=== PATIENT | female | born 1985 | race Hispanic/Latino ===

== ENCOUNTER 2019-07-05 07:02 | Inpatient (IN) | payer BC, OTHER ==
[2019-07-05 07:30] LABS: Absolute Lymphocytes (CBC) 2.9 K/uL (0.7-4.9); Basophils % 0.5 % (0-1.3); Hematocrit 36.3 % (36.0-45.0); Lymphocytes % 40.9 % (15.3-44.8); MPV 8.4 fL (7.6-11.3); RBC Red Blood Cell Count 4.18 M/uL (3.86-4.86)
[2019-07-05 07:50] LABS: ALT/SGPT 22 U/L (12-78); AST/SGOT 9 U/L (15-37); Albumin 3.7 g/dL (3.4-5.0); Alkaline Phosphatase 59 U/L (45-117); BUN Blood Urea Nitrogen 17 mg/dL (7-18); Bicarbonate 23 mmol/L (21-32); Bilirubin Direct < 0.1 mg/dL (0-0.2); Bilirubin Total 0.3 mg/dL (0.2-1.0); Glucose Level 126 mg/dL (74-106); Lipase 183 U/L (73-393); Potassium 3.8 mmol/L (3.5-5.1); Protein, Total 7.2 g/dL (6.4-8.2); Sodium Level 141 mmol/L (136-145)
[2019-07-05] MEDS ORDERED: MORPHINE 4 MG/ML SYR ONE (08:05)
--- NOTE | 2019-07-05 08:23 | RAD REPORT ---
EXAM DESCRIPTION: CTAbdomen Pelvis W Contrast - 07/05/2019 8:16 am CLINICAL HISTORY: Abdominal pain. ABD PAIN COMPARISON: Pelvis Complete dated 07/05/2019 TECHNIQUE: Biphasic CT imaging of the abdomen and pelvis was performed with 100 ml non-ionic IV cont rast. All CT scans are performed using dose optimization technique as appropriate and may include automated exposure control or mA/KV adjustment according to patient size. FINDINGS: The lung bases are clear. The liver, spleen, pancreas, adrenal glands and kidneys are within normal limits. No bowel obstruction, free air, free fluid or abscess. Small fat containing umbilical hernia. The irish endix is normal. No evidence of significant lymphadenopathy. No suspicious bony findings. IMPRESSION: No acute intra-abdominal or pelvic finding.
--- NOTE | 2019-07-05 08:34 | RAD REPORT ---
EXAM DESCRIPTION: US - Abdomen Exam Limited - 07/05/2019 8:27 am CLINICAL HISTORY: ABD PAIN COMPARISON: No comparisons FINDINGS: The gallbladder demonstrates multiple shadowing stones as well as sludge. No pericholecyst ic fluid or gallbladder wall thickening. The common bile duct is normal measuring 4 mm. The liver demonstrates no findings of intrahepatic biliary dilatation. IMPRESSION: Cholelithiasis and gallbladder sludge.
[2019-07-05 08:35] LABS: Urine Blood 3+ (NEG); Urine Glucose NEGATIVE (NEG); Urine Protein NEGATIVE (NEG); Urine pH 7.5 (5.0-7.0)
--- NOTE | 2019-07-05 08:37 | RAD REPORT ---
EXAM DESCRIPTION: US - Transvaginal Study Probe - 07/05/2019 8:21 am CLINICAL HISTORY: lower abd pain, LLQ pain, rule out ovarian torsion Pelvic pain. COMPARISON: TRANSVAGINAL STUDY PROBE dated 02/09/2011 FINDINGS: The uterus is normal in size, shape and echotexture. The uterus measures 8.4 x 6.2 x 5.4 c m. The endometrial stripe measures 8 mm, normal. Both ovaries are normal in size, shape and echotexture. The right ovary measures 3.1 x 1.2 x 1.1 cm. The left ovary measures 2.4 x 1.6 x 1.6 cm. No ovarian or parovarian lesions. No adnexal masses. Normal Doppler blood flow was demonstrated to the left ovary. Doppler blood flow to the right ovary c ould not be demonstrated due to position of the ovary. No significant pelvic ascites. IMPRESSION: No acute process identified.No evidence of left ovarian torsion.
[2019-07-05 08:48] LABS: Urine Bacteria 20-50 /HPF (<20); Urine Culture Reflex Order REFLEXED; Urine Mucus SLIGHT /HPF (NONE SEEN); Urine RBC >50 /HPF (NONE SEEN)
[2019-07-05] MEDS ORDERED: MEPERIDINE HCL 25 MG/0.5 ML ONE (08:53)
--- NOTE | 2019-07-05 09:31 | ER ---
Nurse's Notes [facility] Name: Katie Grace Age: 34 yrs Sex: Female : 1985 Arrival Date: 07/05/2019 Time: 07:06 Bed 6 Private MD: None, None Diagnosis: Cholelithiasis;Intractable abdominal pain Presentation: 07/05 07:11 Presenting complaint: Patient states: umbilical pain radiating to back that began today aa5 at 0300. Pt denies Nausea/vomiting/diarrhea. Pt states "my gallbladder doesn't work properly but this pain feels different". 07:11 Transition of care: patient was not received from another setting of care. Onset of aa5 symptoms was July 05, 2019. Risk Assessment: Do you want to hurt yourself or someone else? Patient reports no desire to harm self or others. Initial Sepsis Screen: Does the patient meet any 2 criteria? No. Patient's initial sepsis screen is negative. Does the patient have a suspected source of infection? No. Patient's initial sepsis screen is negative. Care prior to arrival: None. 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 - Social history:: Smoking status: Patient/guardian denies using tobacco. - Family history:: not pertinent. - Ebola Screening: : No symptoms or risks identified at this time. - Hospitalizations: : No recent hospitalization is reported. Screenin:28 Abuse screen: Denies threats or abuse. Nutritional screening: No deficits noted. tw2 Tuberculosis screening: No symptoms or risk factors identified. Fall Risk None identified. Assessment: 07:15 General: Appears uncomfortable, Behavior is calm, cooperative. Pain: Complains of pain aa5 in umbilical area Pain radiates to left low back, left mid back, right mid back and right low back Pain currently is 9 out of 10 on a pain scale. Quality of pain is described as "it just hurts" Pain began 0300 Is intermittent. Neuro: Level of Consciousness is awake, alert, obeys commands, Oriented to person, place, time, situation. Cardiovascular: Heart tones S1 S2 present Rhythm is regular. Respiratory: Airway is patent Respiratory effort is even, unlabored, Respiratory pattern is regular, symmetrical. GI: Abdomen is round non-distended, Bowel sounds present X 4 quads. Abd is soft and non tender X 4 quads. Abdomen is tender to palpation in umbilical area Patient currently denies diarrhea, nausea, vomiting. : Denies burning with urination, inability to void, urinary frequency, urgency. EENT: No signs and/or symptoms were reported regarding the EENT system. Derm: Skin is pink, warm \\T\\ dry. Musculoskeletal: Range of motion: intact in all extremities. 07:26 Reassessment: US at bedside . aa5 08:15 Reassessment: Pt back from CT . aa5 08:40 Reassessment: Patient is alert, oriented x 3, equal unlabored respirations, skin aa5 warm/dry/pink. Pt appears uncomfortable. Dr. Martínez notified of pt's pain. . 08:55 Reassessment: Patient is alert, oriented x 3, equal unlabored respirations, skin aa5 warm/dry/pink. 09:40 Reassessment: Patient is alert, oriented x 3, equal unlabored respirations, skin aa5 warm/dry/pink. Patient states feeling better. Pt notified of wait time for room assignment. . Pain: Pain currently is 5 out of 10 on a pain scale. 10:35 Reassessment: Patient appears in no apparent distress at this time. Patient and/or ca1 family updated on plan of care and expected duration. Pain level reassessed. Patient is alert, oriented x 3, equal unlabored respirations, skin warm/dry/pink. Pending Room Assignment. 11:07 Reassessment: Called for report. Nurse will call back. ca1 Vital Signs: 07:12 BP 133 / 82; Pulse 60; Resp 16 S; Temp 98.0(O); Pulse Ox 99% on R/A; Weight 74.39 kg aa5 (R); Height 5 ft. 3 in. (160.02 cm) (R); Pain 9/10; 07:54 BP 118 / 72; Pulse 67; Resp 17; Pulse Ox 95% on R/A; tw2 08:31 BP 121 / 84; Pulse 72; Resp 17; Pulse Ox 100% on R/A; tw2 09:50 BP 116 / 73; Pulse 79; Resp 16 S; Pulse Ox 100% on R/A; Pain 5/10; aa5 10:18 BP 159 / 90; Pulse 70; Resp 17; Pulse Ox 100% on R/A; tw2 11:07 BP 114 / 78; Pulse 76; Resp 17 S; Pulse Ox 100% on R/A; ca1 07:12 Body Mass Index 29.05 (74.39 kg, 160.02 cm) aa5 ED Course: 07:06 Patient arrived in ED. ag5 07:06 None, None is Private Physician. ag5 07:09 Berny Martínez MD is Attending Physician. rn 07:11 Arm band placed on Patient placed in an exam room, on a stretcher. aa5 07:17 Melissa Weaver, MARVA is Primary Nurse. aa5 07:18 Triage completed. aa5 07:18 Inserted saline lock: 22 gauge in right antecubital area, using aseptic technique. tw2 Blood collected. 07:28 Bed in low position. tw2 07:30 No provider procedures requiring assistance completed. aa5 07:39 Radiology exam delayed due to lab results not completed at this time. (BUN/Creatinine) md1 test not completed at this time. 08:08 Urine collected: clean catch specimen, cloudy, edmund colored. jb1 08:16 CT Abd/Pelvis - IV Contrast Only In Process Unspecified. EDMS 08:22 Transvaginal Study Probe In Process Unspecified. EDMS 08:29 Abdomen Exam Limited In Process Unspecified. EDMS 09:30 Kimo Sweeney MD is Hospitalizing Provider. rn 10:35 Patient admitted, IV remains in place. ca1 Administered Medications: 08:07 Drug: morphine 4 mg {Note: RASS 0.} Route: IVP; Site: right antecubital; tw2 08:20 Follow up: Response: No adverse reaction aa5 08:55 Drug: Demerol 25 mg Route: IVP; Site: right antecubital; aa5 09:39 Follow up: Response: No adverse reaction; Pain is decreased aa5 09:35 Drug: Rocephin - (cefTRIAXone) 1 grams {Note: administered slow IVP per pharmacy at aa this time. .} Route: IVPB; Infused Over: 30 mins; Site: right antecubital; 09:39 Follow up: Response: No adverse reaction aa5 10:15 Follow up: Response: No adverse reaction; IV Status: Completed infusion ca1 09:39 Drug: Flagyl 500 mg Volume: 100 ml; Route: IVPB; Rate: 200 ml/hr; Infused Over: 30 aa5 mins; Site: right antecubital; 09:50 Follow up: Response: No adverse reaction aa5 10:15 Follow up: Response: No adverse reaction; IV Status: Completed infusion ca1 Outcome: 09:30 Decision to Hospitalize by Provider. rn 11:26 Admitted to Med/surg accompanied by tech, via wheelchair, room 216, with chart, Report ca1 called to MARVA Villavicencio 11:26 Condition: stable 11:26 Instructed on the need for admit. 11:54 Patient left the ED. ca1 Signatures: Dispatcher [employer] Nain Roberson jb1 Berny Martínez MD MD rn Calderon, Audri, RN RN aa5 Claire Livingston RN RN tw2 Edda Hernandez RN RN ca1 Valerie Mcgarry 5 Mony Sanz md1
--- NOTE | 2019-07-05 09:32 | EDPHYS ---
Physician Documentation [facility] Name: Katie Grace Age: 34 yrs Sex: Female : 1985 Arrival Date: 07/05/2019 Time: 07:06 Bed 6 Private MD: None, None ED Physician Berny Martínez HPI: 07/05 07:14 This 34 yrs old Female presents to ER via Unassigned with complaints of rn Abdominal Pain. 07:14 The patient presents to the emergency department with abdominal pain, of the umbilical rn area. Onset: The symptoms/episode began/occurred this morning. Possible causes: unknown. The symptoms are aggravated by movement, pressure, The symptoms are alleviated by nothing. Associated signs and symptoms: Pertinent positives: abdominal pain, nausea, Pertinent negatives: diarrhea, dysuria, fever, GI bleeding. Severity of symptoms: At their worst the symptoms were moderate in the emergency department the symptoms are unchanged. The patient has not experienced similar symptoms in the past. The patient has not recently seen a physician. Reports periumbilical abd pain, constant since this AM, no fever/vomiting/diarrhea. Reports has known poorly functioning gallbladder but this feels different.. 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 - Social history:: Smoking status: Patient/guardian denies using tobacco. - Family history:: not pertinent. - Ebola Screening: : No symptoms or risks identified at this time. - Hospitalizations: : No recent hospitalization is reported. ROS: 07:14 Constitutional: Negative for fever, chills, and weight loss, Eyes: Negative for injury, rn pain, redness, and discharge, Neck: Negative for injury, pain, and swelling, Cardiovascular: Negative for chest pain, palpitations, and edema, Respiratory: Negative for shortness of breath, cough, wheezing, and pleuritic chest pain, Abdomen/GI: Negative for vomiting, diarrhea, and constipation, Back: Negative for injury and pain, : Negative for injury, bleeding, discharge, and swelling, MS/Extremity: Negative for injury and deformity, Skin: Negative for injury, rash, and discoloration, Neuro: Negative for headache, weakness, numbness, tingling, and seizure. Exam: 07:14 Constitutional: This is a well developed, well nourished patient who is awake, alert, rn and in no acute distress. Ambulatory to room without difficulty or assistance. Head/Face: Normocephalic, atraumatic. ENT: MMM Cardiovascular: Regular rate and rhythm. No pulse deficits. Respiratory: No increased work of breathing, no retractions or nasal flaring. Abdomen/GI: soft, + periumbilical and LLQ/suprapubic tenderness, no rebound. MS/ Extremity: Pulses equal, no cyanosis. Neurovascular intact. Full, normal range of motion. Equal circumference. Vital Signs: 07:12 BP 133 / 82; Pulse 60; Resp 16 S; Temp 98.0(O); Pulse Ox 99% on R/A; Weight 74.39 kg aa5 (R); Height 5 ft. 3 in. (160.02 cm) (R); Pain 9/10; 07:54 BP 118 / 72; Pulse 67; Resp 17; Pulse Ox 95% on R/A; tw2 08:31 BP 121 / 84; Pulse 72; Resp 17; Pulse Ox 100% on R/A; tw2 09:50 BP 116 / 73; Pulse 79; Resp 16 S; Pulse Ox 100% on R/A; Pain 5/10; aa5 10:18 BP 159 / 90; Pulse 70; Resp 17; Pulse Ox 100% on R/A; tw2 11:07 BP 114 / 78; Pulse 76; Resp 17 S; Pulse Ox 100% on R/A; ca1 07:12 Body Mass Index 29.05 (74.39 kg, 160.02 cm) aa5 MDM: 07:09 Patient medically screened. rn 09:28 Differential diagnosis: Nonspecific abd pain, gastritis, cholecystitis, pancreatitis, rn appendicitis, viral gastroenteritis, gastroenteritis. Data reviewed: vital signs, nurses notes, lab test result(s), radiologic studies, CT scan, ultrasound, and as a result, I will admit patient. Counseling: I had a detailed discussion with the patient and/or guardian regarding: the historical points, exam findings, and any diagnostic results supporting the discharge/admit diagnosis, lab results, radiology results, the need for further work-up and treatment in the hospital. Response to treatment: the patient's symptoms have mildly improved after treatment, and as a result, I will admit patient. Admission orders: after a detailed discussion of the patient's condition and case, the admit orders are written by me. ED course: Continues to have worsening abd pain, u/s shows gallstones and sludge in addition to known poorly functioning gallbladder. CT abdomen and u/s pelvis neg, UPT neg. Will admit to Dr. Sweeney, consulted \T\ 0925. . 07/05 07:13 Order name: Basic Metabolic Panel; Complete Time: 08:00 07/05 07:13 Order name: CBC with Diff; Complete Time: 08:00 07/05 07:13 Order name: Creatinine for Radiology; Complete Time: 08:00 07/05 07:13 Order name: Hepatic Function; Complete Time: 08:00 07/05 07:13 Order name: Lipase; Complete Time: 08:00 07/05 07:13 Order name: Urine Microscopic Only; Complete Time: 09:05 07/05 07:13 Order name: CT Abd/Pelvis - IV Contrast Only; Complete Time: 09:05 07/05 08:09 Order name: Urine Dipstick--Ancillary (enter results); Complete Time: 08:47 07/05 08:09 Order name: Urine --Ancillary (enter results); Complete Time: 08:47 07/05 08:22 Order name: Transvaginal Study Probe; Complete Time: 09:05 [facility] 07/05 08:29 Order name: Abdomen Exam Limited; Complete Time: 09:05 [facility] 07/05 08:52 Order name: Urine Culture [facility] 07/05 07:13 Order name: IV Saline Lock; Complete Time: 07:25 07/05 07:13 Order name: Labs collected and sent; Complete Time: 07:25 07/05 07:13 Order name: Urine Test (obtain specimen); Complete Time: 07:25 07/05 07:13 Order name: Urine Dipstick-Ancillary (obtain specimen); Complete Time: 08:08 rn Administered Medications: 08:07 Drug: morphine 4 mg {Note: RASS 0.} Route: IVP; Site: right antecubital; tw2 08:20 Follow up: Response: No adverse reaction aa5 08:55 Drug: Demerol 25 mg Route: IVP; Site: right antecubital; aa5 09:39 Follow up: Response: No adverse reaction; Pain is decreased aa5 09:35 Drug: Rocephin - (cefTRIAXone) 1 grams {Note: administered slow IVP per pharmacy at aa this time. .} Route: IVPB; Infused Over: 30 mins; Site: right antecubital; 09:39 Follow up: Response: No adverse reaction aa5 10:15 Follow up: Response: No adverse reaction; IV Status: Completed infusion ca1 09:39 Drug: Flagyl 500 mg Volume: 100 ml; Route: IVPB; Rate: 200 ml/hr; Infused Over: 30 aa5 mins; Site: right antecubital; 09:50 Follow up: Response: No adverse reaction aa5 10:15 Follow up: Response: No adverse reaction; IV Status: Completed infusion ca1 Disposition: 07/05/19 09:30 Hospitalization ordered by Kimo Sweeney for Inpatient Admission. Preliminary diagnosis are Cholelithiasis, Intractable abdominal pain. - Bed requested for Telemetry/MedSurg (Inpatient). - Status is Inpatient Admission. ca1 - Condition is Stable. - Problem is new. - Symptoms have improved. UTI on Admission? No Signatures: Dispatcher [employer] Amena Sterling RN RN dw Berny Martínez MD MD rn Calderon, Audri RN RN aa5 Claire Livingston RN RN tw2 Edda Hernandez RN RN ca1 Corrections: (The following items were deleted from the chart) 07:47 07:14 Abdomen Limited+US.RAD.BRZ ordered. EDIA EDMS 08:21 07:24 Pelvis Complete+US.RAD.BRZ ordered. EDIA EDMS 09:31 09:30 Hospitalization Ordered by Kimo Sweeney MD for Inpatient Admission. Preliminary rn diagnosis is Cholelithiasis. Bed requested for Telemetry/MedSurg (Inpatient). Status is Inpatient Admission. Condition is Stable. Problem is new. Symptoms have improved. UTI on Admission? No. rn 10:57 09:31 07/05/2019 09:30 Hospitalization Ordered by Kimo Sweeney MD for Inpatient dw Admission. Preliminary diagnosis is Cholelithiasis; Intractable abdominal pain. Bed requested for Telemetry/MedSurg (Inpatient). Status is Inpatient Admission. Condition is Stable. Problem is new. Symptoms have improved. UTI on Admission? No. rn 11:54 10:57 07/05/2019 09:30 Hospitalization Ordered by Kimo Sweeney MD for Inpatient ca1 Admission. Preliminary diagnosis is Cholelithiasis; Intractable abdominal pain. Bed requested for Telemetry/MedSurg (Inpatient). Status is Inpatient Admission. Condition is Stable. Problem is new. Symptoms have improved. UTI on Admission? No. dw
[2019-07-05] MEDS ORDERED: CEFTRIAXONE/SWI 1gm 1 GM/10 ML SYR ONE (09:33)
[2019-07-05] MEDS ORDERED: METRONIDAZOLE 500mg IVPB 500 MG/100 ML BAG IV ONE (09:34)
[2019-07-05 12:16] VITALS: BMI 29.0
[2019-07-05] MEDS ORDERED: MORPHINE 4 MG/ML SYR IV PRN (12:18)
[2019-07-05] MEDS ORDERED: ONDANSETRON 4 MG/2 ML VIAL IV PRN (12:18)
[2019-07-05] MEDS: D5 0.45 NS 1,000 ML IV SCH ×2 (12:51→20:53)
[2019-07-05] MEDS: CEFOXITIN/SWI 1gm 1 GM/10 ML SYR IV SCH ×3 (12:52→23:23)
[2019-07-05] MEDS ORDERED: CEFOXITIN SODIUM 1 GM/VIAL IVPB SCH (15:00)
[2019-07-05] MEDS: METRONIDAZOLE 500mg IVPB 500 MG/100 ML BAG IV SCH ×2 (16:47→23:23)
--- NOTE | 2019-07-06 00:58 | HP ---
Date of Admission: 07/05/2019 Chief Complaint: Abdominal pain. History Of Present Illness: The patient is a 34-year-old female, who comes in with acute onset of ep igastric pain going to the back in the right upper quadrant. Denies any nausea, vomiting, bloating, belching, or heartburn. She was given several doses of pain medicine in the ER without much resoluti on, therefore she was admitted for parenteral pain management and surgical evaluation. No diarrhea, constipation. No blood in her stool. No dysuria, hematuria. No sore throat, runny nose, cough, hea daches, or dizziness. No chest pain. No fever or chills. Review of Systems: Otherwise unremarkable. Past Medical History: Negative. She did have a HIDA scan done of the gallbladder a couple of years ago, which showed decreased function. Past Surgical History: Negative. Allergies: SHE DOES NOT SMOKE, DENIES DRINKING. Family History: Noncontributory. Physical Examination: Vital Signs: Stable. She is afebrile. She is awake, alert, and oriented x3. Head and Neck: No evidence of icterus. Cranial nerves 2 through 12 are grossly within normal limits . No neck masses. No JVD. Throat clear. Neck supple. Chest: Clear. Heart: S1 and S2. Abdomen: Soft, nondistended. Positive bowel sounds. Positive right upper quadrant tenderness. No rebound, rigidity, or guarding. Extremities: Adequately perfused. Nontender. Neuro: Nonfocal. Laboratory Data: White count is 7.2. Chemistry reviewed. Glucose is 126. LFTs and lipase within n ormal limits. Ultrasound, pelvis CT reviewed. Patient has cholelithiasis with gallbladder sludge. No findings for intrahepatic biliary dilatation. Bile duct is 4 mm. Assessment: Acute cholecystitis and cholelithiasis. Plan: Admit n.p.o., IV fluid, IV antibiotic, to the OR for laparoscopic cholecystectomy, possible op en. The patient understands the risks, benefits, and alternatives and agrees to procedure. /MODL Voice ID: [id number]
[2019-07-06] MEDS: CEFOXITIN/SWI 1gm 1 GM/10 ML SYR IV SCH ×2 (05:40→11:34)
[2019-07-06 06:00] LABS: Absolute Lymphocytes (CBC) 2.7 K/uL (0.7-4.9); Basophils % 0.3 % (0-1.3); Hematocrit 33.4 % (36.0-45.0); Lymphocytes % 38.7 % (15.3-44.8); MPV 8.5 fL (7.6-11.3); RBC Red Blood Cell Count 3.81 M/uL (3.86-4.86)
[2019-07-06 06:12] LABS: ALT/SGPT 26 U/L (12-78); AST/SGOT 12 U/L (15-37); Albumin 3.1 g/dL (3.4-5.0); Alkaline Phosphatase 51 U/L (45-117); BUN Blood Urea Nitrogen 6 mg/dL (7-18); Bicarbonate 27 mmol/L (21-32); Bilirubin Direct < 0.1 mg/dL (0-0.2); Bilirubin Total 0.3 mg/dL (0.2-1.0); Glucose Level 136 mg/dL (74-106); Lipase 155 U/L (73-393); Potassium 3.6 mmol/L (3.5-5.1); Protein, Total 6.2 g/dL (6.4-8.2); Sodium Level 142 mmol/L (136-145)
[2019-07-06] MEDS: METRONIDAZOLE 500mg IVPB 500 MG/100 ML BAG IV SCH (08:17)
[2019-07-06] MEDS: D5 0.45 NS 1,000 ML IV SCH (08:17)
[2019-07-06] MEDS ORDERED: ROCURONIUM 50 MG/5 ML VIAL IV ONE (09:31)
[2019-07-06] MEDS ORDERED: FENTANYL CITR 100 MCG/2 ML ONE (09:31)
[2019-07-06] MEDS ORDERED: LIDOCAINE 2% MPF 5 ML VIAL ONE (09:31)
[2019-07-06] MEDS ORDERED: MIDAZOLAM HCL 2 MG/2 ML INJ ONE (09:31)
[2019-07-06] MEDS ORDERED: PROPOFOL 200 MG/20 ML VIAL IV ONE (09:31)
[2019-07-06] MEDS ORDERED: Ringers Lactate 1,000 ML IV ONE ×2 (10:55→11:52)
[2019-07-06] MEDS ORDERED: CEFOXITIN/SWI 1gm 1 GM/10 ML SYR ONE (11:32)
[2019-07-06] MEDS ORDERED: CEFOXITIN/SWI 1gm 0 GM/0 ML SYR ONE (11:32)
[2019-07-06] MEDS ORDERED: KETOROLAC 30 MG/ML INJ ONE (12:08)
[2019-07-06] MEDS ORDERED: GLYCOPYRROLATE 0.2 MG/ML SYR ONE (12:18)
[2019-07-06] MEDS ORDERED: NEOSTIGMINE 1 MG/ML -5 ML ONE (12:20)
--- NOTE | 2019-07-06 12:31 | P.OP ---
Acid Splicer: Sury BECERRA Preoperative diagnosis: Acute Chlecystitis and Cholelithiasis Postoperative diagnosis: same Primary procedure: Lap Dora Anesthesia: General Estimated blood loss: min Specimen: GB Findings: as above Complications: None Transferred to: Recovery Room Condition: Good
[2019-07-06] MEDS ORDERED: HYDROCODONE/APAP 7.5/325 MG TAB PO PRN (12:47)
[2019-07-06] MEDS ORDERED: HYDROMORPHONE HCL 1 MG/ML INJ IV PRN (12:47)
[2019-07-06] MEDS ORDERED: MEPERIDINE HCL 25 MG/0.5 ML ONE ×2 (12:49→12:57)
[2019-07-06 13:16] VITALS: BP 121/72; TEMP 97.4
[2019-07-06 14:52] VITALS: O2SAT 94
--- NOTE | 2019-07-07 00:58 | OP ---
Date of Procedure: 07/06/2019 Surgeon: Kimo Sweeney MD Credit Collection Associate: HERNAN Flores. Preoperative Diagnosis: Acute cholecystitis, cholelithiasis. Postoperative Diagnosis: Acute cholecystitis, cholelithiasis. Procedure Performed: Laparoscopic cholecystectomy. Estimated Blood Loss: Minimal. Specimen: Gallbladder. Findings: As above. Anesthesia: General. Complications: None. Disposition: The patient tolerated the procedure in stable condition, taken to Recovery in good gene ral condition. Procedure In Detail: Patient was brought to the OR and placed in supine position. General anesthesi a was begun. Patient was prepped and draped in the usual sterile fashion. Marcaine 0.5% was infiltr ated locally. A 15-blade was used to make a 1 cm infraumbilical midline incision. Subcutaneous tiss ue was divided. The fascia was identified and removed. A #1 Vicryl stay suture was placed. Periton eal cavity was entered with sharp and blunt dissection. A 12 mm trocar was placed into the peritonea l cavity under direct vision. Pneumoperitoneum was established. Three 5 mm trocars were placed, 1 i n the epigastrium just to the right of midline, 2 in the right subcostal region. Laparoscopy reveale d acute cholecystitis. Fundus retracted superiorly. Infundibulum was identified and retracted infer olaterally. Cystic duct and cystic artery were clearly identified with blunt dissection. Clips were placed. Both structures were divided. Cautery was used to remove the gallbladder from the liver be d. Bleeding on the liver bed was controlled with cautery. The gallbladder was retrieved through the umbilicus via an EndoCatch bag. Right upper quadrant was irrigated. Effluent was clear. No eviden ce of bleeding or bile leakage appreciated. Subsequently, all trocars were removed under direct visi on. Stay sutures were tied to each other to reapproximate the fascial defect. Subcutaneous wounds w ere irrigated. Bleeding controlled with cautery. A 3-0 chromic used to approximate the subcutaneous tissue and close the skin. Sterile dressing was applied. The patient was awakened and taken to the Recovery in good general condition. Discharge Note: The patient will go to the floor and given diet as tolerated. Patient will be disch arged to home. Disposition: Home. Condition: Stable. Discharge Instructions: Resume home medications and diet. Activity as tolerated. No heavy lifting. Remove outer dressing in 2 days. Shower. Keep Steri-Strips on at all times. Follow up in my [facility] in 1 week. Call for appointment. Tylenol No. 3 one tablet p.o. every 4 hours p.r.n. pain. Admitting Diagnosis: Acute cholecystitis and cholelithiasis. Discharge Diagnosis: Acute cholecystitis and cholelithiasis. Procedure Performed: Laparoscopic cholecystectomy. /MODArmando Voice ID: [id number] Report ID: [id number]
== END 2019-07-06 16:37 | disposition home or self-care (01) | DRG 419 ==
LOC: ER 07:02 → ERHOLD 09:32 → 2ND 11:28
PROVIDERS: ADMIT Surgery; ATTEND Surgery
PROC: 0FT44ZZ Resection of Gallbladder, Percutaneous Endoscopic Approach (ICD-10-PCS; principal; 2019-07-06 11:15)
DX: K80.00 Calculus of gallbladder with acute cholecystitis without obstruction (principal)
CPT/HCPCS: 36415; 74177; 76705; 76830; 80048; 80076; 81003; 81015; 81025; 83690; 85025; 87086; 87088; 88304; 96365; 96368; 96375; 99285; J0696; J2175; J2250; J2405; J2704; J2710; J3010; J7120; J7799; Q9967

== ENCOUNTER 2020-04-04 06:24 | Day surgery (SDC) | payer OTHER ==
[2020-04-03 16:21] LABS: Absolute Lymphocytes (CBC) 2.4 K/uL (0.7-4.9); Basophils % 0.2 % (0-1.3); Hematocrit 35.3 % (36.0-45.0); RBC Red Blood Cell Count 4.06 M/uL (3.86-4.86)
[2020-04-04] MEDS ORDERED: Ringers Lactate 1,000 ML IV ONE (06:49)
[2020-04-04] MEDS ORDERED: DOXYCYCLINE 200 MG in NA CHLORIDE 0.9% 250 ML IVPB ONE (07:00)
[2020-04-04] MEDS ORDERED: FENTANYL CITR 100 MCG/2 ML ONE (07:15)
[2020-04-04] MEDS ORDERED: propofoL 200 MG/20 ML VIAL IV ONE (07:15)
[2020-04-04] MEDS ORDERED: dexAMETHasone 10 MG/ML VIAL ONE (07:15)
[2020-04-04] MEDS ORDERED: MIDAZOLAM HCL 2 MG/2 ML INJ ONE (07:15)
[2020-04-04] MEDS ORDERED: LIDOCAINE 2% MPF 5 ML VIAL ONE (07:15)
[2020-04-04] MEDS ORDERED: KETOROLAC 30 MG/ML INJ ONE (07:16)
[2020-04-04] MEDS ORDERED: ONDANSETRON 4 MG/2 ML VIAL ONE (07:17)
[2020-04-04] MEDS ORDERED: SILVER NITRATE 1 APPL TOP ONE (07:28)
[2020-04-04] MEDS ORDERED: OXYTOCIN 10 UNIT/ML ML IV ONE (07:28)
[2020-04-04] MEDS ORDERED: CARBOPROST TROME 250 MCG/ML IM ONE (07:29)
[2020-04-04] MEDS ORDERED: METHYLERGONOVINE 0.2MG/ML AMP IM ONE (07:29)
[2020-04-04 08:40] VITALS: BP 110/65; TEMP 96.8; O2SAT 99
--- NOTE | 2020-04-04 09:48 | PREOPHP ---
Date of Admission: 04/04/2020 History Of Present Illness: Ms. Grace is a -ills-ayx female, 3 , para 2-0-0-2, now at approximately 12+ weeks gestation. Unfortunately, on today's examination, no heart tone or cardiac motion could be elicited, nor motion. Followup ultrasound through [facility] also revealed intrauterine demise at approximately 11-week size. After counseling, Ms. Grace has elected to undergo D and C for completion of an intrauterine erik se and completion of . Past Medical History: Includes 2 prior vaginal deliveries. She has no other significant hospitaliza tions, accidents, illnesses, injuries, or surgeries. Medications: She is on no medications currently other than vitamin. She has been diagnosed with gestational diabetes that was being diet controlled only with borderline control. She is takin g vitamin. She has not started her iron tablets yet. Social History: She does not smoke. Family History: Noncontributory. Review of Systems: She reports no recent cough, cold, fever, or chills. No recent nausea or vomiting. No breast knots or lumps. No bowel or bladder issues. Physical Examination: General: female, in no apparent distress. Neck: Supple without adenopathy or thyromegaly. Lungs: Clear. Cardiac: Regular rate and rhythm without murmurs. Breasts: Not examined. Abdomen: Nontender. Pelvic: Not performed today. Extremities: No cyanosis, clubbing, edema. Impression: 1.A 12+ week intrauterine demise. 2.Gestational diabetes. Plan: The patient will undergo dilatation and curettage. Risks and benefits are discussed. She has signed operative permit in my presence. GURPREET/ADRIANE Voice ID: [id number]
--- NOTE | 2020-04-04 18:15 | DS ---
Date of Discharge: 04/04/2020 Final Hospital Discharge Diagnosis: 12+ week with intrauterine demise. Procedures: Dilatation and curettage for completion of an inevitable . Hospital Course: The patient is a 35-year-old female, 3, para 2-0-0-2, at a pproximately 12+ weeks gestation, who had ultrasound confirmation of intrauterine demise both i n my office and through our [facility]. She was counseled regarding performing a D and C versus awaiting spontaneous . She chose to continue with a dilatation and curettage. She underwent this and was dismissed to be seen back in my office in 2 weeks with usual post D and C acti vity restriction. She has Rh positive blood type. CBC was normal. Pelvic test was pending at the [facility]. She was dismissed to take misoprostol 100 mcg q.6 hours #4 tablets with usual pelvic rest precautions. GURPREET/ADRIANE Voice ID: [id number] Report ID: [id number]
--- NOTE | 2020-04-04 18:39 | OP ---
Surgeon: Leroy Caban MD Preoperative Diagnosis: Intrauterine demise at approximately 12+ weeks gestation. Postoperative Diagnosis: Intrauterine demise at approximately 12+ weeks gestation. Procedure: Dilatation and curettage for completion of inevitable . Description Of Procedure: After satisfactory level of general anesthesia was obtained, the patient w as prepped and draped in usual fashion in high leg holders. A weighted speculum was placed in surgery attendant ior vagina. The anterior cervical lip was grasped with single-tooth tenaculum. Uterus was sounded t o approximately 12 cm. Cervix was minimally dilated to accept a 10 curved suction curette productive of large amount of tissue. This was followed by sharp curettage with Sharon curette and repeat suct ion curettage. No further tissue was noted. Bleeding was controlled with 0.2 mg of Methergine IM an d 20 units of Pitocin added to approximately 500 cc of IV fluids, which was administered in rapid dri p fashion. The patient was awakened taken to recovery room in satisfactory condition. Estimated tot al blood loss was less than 20 cc. The patient tolerated all procedures well. 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 She did receive 200 mg of doxycycline for antibiotic prophylaxis. GURPREET/MODL Voice ID: [id number] Report ID: [id number]
== END 2020-04-04 09:25 | disposition home or self-care (01) ==
LOC: OR 06:24
PROVIDERS: ATTEND Specialist
PROC: 10D17ZZ Extraction of Products of Conception, Retained, Via Natural or Artificial Opening (ICD-10-PCS; principal; 2020-04-04 07:30)
DX: O02.1 Missed abortion (principal); O24.419 Gestational diabetes mellitus in pregnancy, unspecified control; Z3A.12 12 weeks gestation of pregnancy; Z20.828 Contact with and (suspected) exposure to other viral communicable diseases
CPT/HCPCS: 59820; 85025; 36415; 88305; U0002; J2704; J2210; J2590; J2250; J3010; J1100; J7120; J7050; J2405

== ENCOUNTER 2020-04-07 10:19 | Emergency (ER) | payer OTHER ==
[2020-04-07 11:41] LABS: Absolute Lymphocytes (CBC) 2.6 K/uL (0.7-4.9); Basophils % 0.4 % (0-1.3); Lymphocytes % 18.6 % (15.3-44.8); MPV 8.2 fL (7.6-11.3); RBC Red Blood Cell Count 4.28 M/uL (3.86-4.86)
[2020-04-07] MEDS ORDERED: MORPHINE 4 MG/ML SYR ONE (11:46)
[2020-04-07] MEDS ORDERED: ONDANSETRON 4 MG/2 ML VIAL ONE (11:47)
[2020-04-07] MEDS ORDERED: NA CHLORIDE 0.9% 1,000 ML ONE (11:47)
[2020-04-07 11:48] LABS: Urine Blood 3+ (NEG); Urine Glucose NEGATIVE (NEG); Urine Protein NEGATIVE (NEG)
--- NOTE | 2020-04-07 12:18 | RAD REPORT ---
EXAM DESCRIPTION: CT - Abdomen Pelvis W Contrast - 04/07/2020 11:52 am CLINICAL HISTORY: Abdominal pain COMPARISON: none. TECHNIQUE: Computed axial tomography of the abdomen pelvis was obtained. 100 cc Isovue-300 was admin istered intravenously. Oral contrast was not requested which limits evaluation of bowel. All CT scans are performed using dose optimization technique as appropriate and may include automated exposure control or mA/KV adjustment according to patient size. FINDINGS: The liver, spleen, pancreas, adrenal and kidneys appear unremarkable. There is no evidence of diverticulitis. Normal appendix The patient is status post a D and C of the uterus April 04, 2020. The endometrial stripe is normal thickness. No significant free fluid Small umbilical hernia IMPRESSION: No acute abnormality is displayed.
[2020-04-07 12:46] LABS: BUN Blood Urea Nitrogen 10 mg/dL (7-18); Bicarbonate 22 mmol/L (21-32); Glucose Level 87 mg/dL (74-106); HCG, Quantitative 589 mIU/mL (1-3); Potassium 3.6 mmol/L (3.5-5.1); Sodium Level 142 mmol/L (136-145)
[2020-04-07] MEDS ORDERED: FENTANYL CITR 100 MCG/2 ML ONE (13:02)
[2020-04-07] MEDS ORDERED: DICYCLOMINE HCL 10 MG CAP ONE (13:56)
[2020-04-07] MEDS ORDERED: KETOROLAC 30 MG/ML INJ ONE (13:57)
--- NOTE | 2020-04-07 14:38 | EDPHYS ---
Physician Documentation [facility] Name: Katie Grace Age: 35 yrs Sex: Female : 1985 Arrival Date: 04/07/2020 Time: 10:21 Bed 13 Private MD: ED Physician Mendoza Balderas HPI: 04/07 13:53 This 35 yrs old Female presents to ER via Wheelchair with complaints of kb Abdominal Pain, Rectal Pain. 13:53 The patient presents with abdominal pain in the lower abdomen. Onset: The kb symptoms/episode began/occurred yesterday. The symptoms radiate to back. Associated signs and symptoms: Pertinent positives: vaginal bleeding, Pertinent negatives: nausea, vomiting, and diarrhea, fever. The symptoms are described as constant. Modifying factors: The symptoms are alleviated by nothing, the symptoms are aggravated by nothing. Severity of pain: At its worst the pain was moderate severe in the emergency department the pain is unchanged. The patient has not experienced similar symptoms in the past. The patient has been recently seen by a physician:. Pt reports lower abd pain that started yesterday. States she had a D\T\C on Friday by Dr Caban. States her bleeding is getting better. Reports she had no pain postop, but started having pain yesterday afternoon. Reports the pain radiates to the back and she has a spasm at her rectum. 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 - Social history:: Smoking status: Patient denies any tobacco usage or history of. ROS: 13:52 Constitutional: Negative for fever, chills, and weight loss, Cardiovascular: Negative kb for chest pain, palpitations, and edema, Respiratory: Negative for shortness of breath, cough, wheezing, and pleuritic chest pain, Back: Negative for injury and pain, : Negative for injury, bleeding, discharge, and swelling, MS/Extremity: Negative for injury and deformity, Skin: Negative for injury, rash, and discoloration, Neuro: Negative for headache, weakness, numbness, tingling, and seizure. 13:52 Abdomen/GI: Positive for abdominal pain, spasms at rectum, Negative for nausea, vomiting, and diarrhea. Exam: 13:52 Constitutional: This is a well developed, well nourished patient who is awake, alert, kb and in no acute distress. Head/Face: Normocephalic, atraumatic. Chest/axilla: Normal chest wall appearance and motion. Nontender with no deformity. No lesions are appreciated. Cardiovascular: Regular rate and rhythm with a normal S1 and S2. No gallops, murmurs, or rubs. Normal PMI, no JVD. No pulse deficits. Respiratory: Lungs have equal breath sounds bilaterally, clear to auscultation and percussion. No rales, rhonchi or wheezes noted. No increased work of breathing, no retractions or nasal flaring. Back: No spinal tenderness. No costovertebral tenderness. Full range of motion. Skin: Warm, dry with normal turgor. Normal color with no rashes, no lesions, and no evidence of cellulitis. MS/ Extremity: Pulses equal, no cyanosis. Neurovascular intact. Full, normal range of motion. Neuro: Awake and alert, GCS 15, oriented to person, place, time, and situation. Cranial nerves II-XII grossly intact. Motor strength 5/5 in all extremities. Sensory grossly intact. Cerebellar exam normal. Normal gait. 13:52 Abdomen/GI: Inspection: abdomen appears normal, Bowel sounds: normal, in all quadrants, Palpation: soft, in all quadrants, moderate abdominal tenderness, in the right lower quadrant and left lower quadrant, Rectal exam: is unremarkable. Vital Signs: 10:30 BP 126 / 86; Pulse 78; Resp 16; Temp 98.1; Pulse Ox 100% on R/A; Weight 77.11 kg; hb Height 5 ft. 3 in. (160.02 cm); Pain 10/10; 11:55 BP 120 / 75; Pulse 78; Resp 15 S; Pulse Ox 100% on R/A; ca1 12:55 BP 110 / 80; Pulse 74; Resp 15 S; Pulse Ox 100% on R/A; ca1 14:12 BP 111 / 72; Pulse 74; Resp 15 S; Pulse Ox 100% on R/A; ca1 10:30 Body Mass Index 30.11 (77.11 kg, 160.02 cm) hb MDM: 10:41 Patient medically screened. kb 13:22 Data reviewed: vital signs, nurses notes. Data interpreted: Pulse oximetry: on room air kb is 100 %. Interpretation: normal. Counseling: I had a detailed discussion with the patient and/or guardian regarding: the historical points, exam findings, and any diagnostic results supporting the discharge/admit diagnosis, lab results, radiology results, the need for outpatient follow up, an OB/Gyne specialist, to return to the emergency department if symptoms worsen or persist or if there are any questions or concerns that arise at home. Physician consultation: Leroy Caban MD was contacted at 13:23, regarding consult, patient's condition, and will see patient in ED, shortly. 13:30 Physician consultation: Leroy Caban MD in the emergency department to see patient kb at 13:31. 13:50 ED course: Dr Caban would like pt to be observed in the ER until 1600, then be kb reevaluated for discharge home vs admission. . 14:36 ED course: Pt reports her pain is better and she is ready to go home. I informed Dr hoda Caban of pt's condition. He wants pt to call the office on Friday to make follow up appt for next week.. 04/07 10:47 Order name: Quantitative Hcg; Complete Time: 12:49 kb 04/07 10:47 Order name: Abo/rh Typing; Complete Time: 12:49 kb 04/07 10:47 Order name: Basic Metabolic Panel; Complete Time: 12:49 kb 04/07 10:47 Order name: CBC with Diff; Complete Time: 11:44 kb 04/07 11:30 Order name: Urine Dipstick--Ancillary (enter results); Complete Time: 12:00 eb 04/07 12:04 Order name: CREATININE WHOLE BLOOD; Complete Time: 12:06 EDMS 04/07 10:47 Order name: IV Saline Lock; Complete Time: 11:43 kb 04/07 10:47 Order name: CT Abd/Pelvis - IV Contrast Only; Complete Time: 12:20 kb 04/07 10:47 Order name: Labs collected and sent; Complete Time: 11:43 kb 04/07 10:47 Order name: NPO; Complete Time: 11:29 kb 04/07 10:47 Order name: Urine Dipstick-Ancillary (obtain specimen); Complete Time: 11:29 kb Administered Medications: 11:38 Drug: NS 0.9% 1000 ml Route: IV; Rate: 1000 ml; Site: right forearm; ca1 12:54 Follow up: Response: No adverse reaction; IV Status: Completed infusion; IV Intake: ca1 1000ml 11:40 Drug: Zofran (Ondansetron) 4 mg Route: IVP; Site: right forearm; ca1 12:54 Follow up: Response: No adverse reaction; Pain is decreased ca1 12:54 Follow up: Response: Nausea is decreased ca1 11:42 Drug: morphine 4 mg {Note: rass 0.} Route: IVP; Site: right forearm; ca1 12:55 Follow up: Response: No adverse reaction; Pain is unchanged, physician notified; RASS: ca1 Alert and Calm (0) 12:54 Drug: fentaNYL (PF) 50 mcg {Note: rass 0.} Route: IVP; Site: right forearm; ca1 13:48 Follow up: Response: No adverse reaction; Pain is decreased; RASS: Alert and Calm (0) ca1 13:48 Drug: TORadol 30 mg Route: IVP; Site: right forearm; ca1 14:54 Follow up: Response: No adverse reaction; Pain is decreased ca1 13:48 Drug: Bentyl 20 mg Route: PO; ca1 14:54 Follow up: Response: No adverse reaction; Pain is decreased ca1 Disposition: 04/07/20 14:37 Discharged to Home. Impression: Lower abdominal pain, unspecified. - Condition is Stable. - Discharge Instructions: Abdominal Pain, Adult, [id number]. - Prescriptions for Bentyl 20 mg Oral Tablet - take 1 tablet by ORAL route every 6 hours As needed; 20 tablet. Zofran 4 mg Oral Tablet - take 1 tablet by ORAL route every 6 hours As needed; 20 tablet. Diclofenac Sodium 75 mg Oral Tablet, Delayed Release (E.C.) - take 1 tablet by ORAL route 2 times per day As needed; 30 tablet. - Medication Reconciliation Form, Thank You Letter, Antibiotic Education, Prescription Opioid Use form. - Follow up: Emergency Department; When: As needed; Reason: Worsening of condition. Follow up: Private Physician; When: 2 - 3 days; Reason: Recheck today's complaints, Continuance of care, Re-evaluation by your physician. Addendum: 04/10/2020 08:20 Co-signature as Attending Physician, Mendoza Balderas MD I agree with the assessment and k dr plan of care. Signatures: Dispatcher [employer] EDMS Rani Heard, STOCK CONTROL SUPERVISOR-C STOCK CONTROL SUPERVISOR-Ckb Mendoza Balderas MD MD kdr Jada Ray RN RN hb AcobEdda RN RN ca1 Corrections: (The following items were deleted from the chart) 04/07 14:55 14:37 04/07/2020 14:37 Discharged to Home. Impression: Lower abdominal pain, ca1 unspecified. Condition is Stable. Forms are Medication Reconciliation Form, Thank You Letter, Antibiotic Education, Prescription Opioid Use. Follow up: Emergency Department; When: As needed; Reason: Worsening of condition. Follow up: Private Physician; When: 2 - 3 days; Reason: Recheck today's complaints, Continuance of care, Re-evaluation by your physician. kb
--- NOTE | 2020-04-07 14:38 | ER ---
Nurse's Notes [facility] Name: Katie Grace Age: 35 yrs Sex: Female : 1985 Arrival Date: 04/07/2020 Time: 10:21 Bed 13 Private MD: Diagnosis: Lower abdominal pain, unspecified Presentation: 04/07 10:30 Chief complaint: Lower abdominal and rectal pain that radiates to low back since last hb night. Pt had D\T\C Wednesday 04/[address] Caban. Coronavirus screen: At this time, the client does not indicate any symptoms associated with coronavirus-19. Ebola Screen: No symptoms or risks identified at this time. Initial Sepsis Screen: Does the patient meet any 2 criteria? No. Patient's initial sepsis screen is negative. Does the patient have a suspected source of infection? No. Patient's initial sepsis screen is negative. Risk Assessment: Do you want to hurt yourself or someone else? Patient reports no desire to harm self or others. Onset of symptoms was April 07, 2020. 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 - Social history:: Smoking status: Patient denies any tobacco usage or history of. Screenin:50 Abuse screen: Denies threats or abuse. Denies injuries from another. Nutritional ca1 screening: No deficits noted. Tuberculosis screening: No symptoms or risk factors identified. Fall Risk IV access (20 points). Assessment: 10:50 General: Appears in no apparent distress. uncomfortable, Behavior is calm, cooperative, ca1 appropriate for age. Pain: Complains of pain in right lower quadrant and left lower quadrant Pain radiates to low back area Pain currently is 10 out of 10 on a pain scale. Quality of pain is described as crampy, Is intermittent. Neuro: Level of Consciousness is awake, alert, obeys commands, Oriented to person, place, time, situation. Cardiovascular: Heart tones S1 S2 present. Respiratory: Airway is patent Respiratory effort is even, unlabored, Respiratory pattern is regular, symmetrical, Breath sounds are clear bilaterally. GI: Abdomen is round non-distended, Bowel sounds present X 4 quads. Abd is soft X 4 quads Abdomen is tender to palpation in right lower quadrant and left lower quadrant. : No signs and/or symptoms were reported regarding the genitourinary system. EENT: No signs and/or symptoms were reported regarding the EENT system. Derm: Skin is intact, is healthy with good turgor, Skin is pink, warm \T\ dry. Musculoskeletal: Circulation, motion, and sensation intact. Capillary refill < 3 seconds. 11:55 Reassessment: Patient appears in no apparent distress at this time. Patient and/or ca1 family updated on plan of care and expected duration. Pain level reassessed. Patient is alert, oriented x 3, equal unlabored respirations, skin warm/dry/pink. 12:55 Reassessment: Patient appears in no apparent distress at this time. Patient and/or ca1 family updated on plan of care and expected duration. Pain level reassessed. Patient is alert, oriented x 3, equal unlabored respirations, skin warm/dry/pink. 13:34 Reassessment: Dr. Allen at bedside. ca1 14:12 Reassessment: Patient appears in no apparent distress at this time. Patient and/or ca1 family updated on plan of care and expected duration. Pain level reassessed. Patient is alert, oriented x 3, equal unlabored respirations, skin warm/dry/pink. 14:54 Reassessment: Patient appears in no apparent distress at this time. Patient is alert, ca1 oriented x 3, equal unlabored respirations, skin warm/dry/pink. Patient states feeling better. Vital Signs: 10:30 BP 126 / 86; Pulse 78; Resp 16; Temp 98.1; Pulse Ox 100% on R/A; Weight 77.11 kg; hb Height 5 ft. 3 in. (160.02 cm); Pain 10/10; 11:55 BP 120 / 75; Pulse 78; Resp 15 S; Pulse Ox 100% on R/A; ca1 12:55 BP 110 / 80; Pulse 74; Resp 15 S; Pulse Ox 100% on R/A; ca1 14:12 BP 111 / 72; Pulse 74; Resp 15 S; Pulse Ox 100% on R/A; ca1 10:30 Body Mass Index 30.11 (77.11 kg, 160.02 cm) hb ED Course: 10:21 Patient arrived in ED. mr 10:32 Triage completed. hb 10:33 Arm band placed on. hb 10:40 [facility] Heard [facility] kb 10:40 Mendoza Balderas MD is Attending Physician. kb 10:50 Patient has correct armband on for positive identification. Placed in gown. Bed in low ca1 position. Call light in reach. Side rails up X2. Pulse ox on. NIBP on. Warm blanket given. 11:10 Missed attempt(s): 20 gauge in right antecubital area. Bleeding controlled, band aid ca1 applied, catheter tip intact. 11:16 Missed attempt(s): 22 gauge in left antecubital area. Bleeding controlled, band aid ca1 applied, catheter tip intact. 11:28 Edda Hernandez RN is Primary Nurse. ca1 11:39 Initial lab(s) drawn, sent to lab. Inserted saline lock: 22 gauge in right forearm, ca1 using aseptic technique. ,using aseptic technique. by Radha assistant technician Blood collected. 11:52 CT Abd/Pelvis - IV Contrast Only In Process Unspecified. EDMS 12:20 Lab(s) recollected, by me, sent to lab. ca1 14:55 No provider procedures requiring assistance completed. IV discontinued, intact, ca1 bleeding controlled, No redness/swelling at site. Pressure dressing applied. Administered Medications: 11:38 Drug: NS 0.9% 1000 ml Route: IV; Rate: 1000 ml; Site: right forearm; ca1 12:54 Follow up: Response: No adverse reaction; IV Status: Completed infusion; IV Intake: ca1 1000ml 11:40 Drug: Zofran (Ondansetron) 4 mg Route: IVP; Site: right forearm; ca1 12:54 Follow up: Response: No adverse reaction; Pain is decreased ca1 12:54 Follow up: Response: Nausea is decreased ca1 11:42 Drug: morphine 4 mg {Note: rass 0.} Route: IVP; Site: right forearm; ca1 12:55 Follow up: Response: No adverse reaction; Pain is unchanged, physician notified; RASS: ca1 Alert and Calm (0) 12:54 Drug: fentaNYL (PF) 50 mcg {Note: rass 0.} Route: IVP; Site: right forearm; ca1 13:48 Follow up: Response: No adverse reaction; Pain is decreased; RASS: Alert and Calm (0) ca1 13:48 Drug: TORadol 30 mg Route: IVP; Site: right forearm; ca1 14:54 Follow up: Response: No adverse reaction; Pain is decreased ca1 13:48 Drug: Bentyl 20 mg Route: PO; ca1 14:54 Follow up: Response: No adverse reaction; Pain is decreased ca1 Intake: 12:54 IV: 1000ml; Total: 1000ml. ca1 Outcome: 14:37 Discharge ordered by . hoda 14:55 Discharged to home ambulatory. ca1 14:55 Condition: stable 14:55 Discharge instructions given to patient, Instructed on discharge instructions, follow up and referral plans. medication usage, Demonstrated understanding of instructions, follow-up care, medications, Prescriptions given X 3. 14:55 Patient left the ED. ca1 Signatures: Dispatcher [employer] EDMS Rani Heard, JANET SWEENEY-Aisha Falcon mr Jada Ray, RN RN Edda Hernandez RN RN ca1
[2020-04-07 15:08] VITALS: TEMP 98.1; O2SAT 100
[2020-04-07 15:17] VITALS: BP 111/72
--- NOTE | 2020-04-07 18:18 | CON ---
History Of Present Illness: Ms. Grace is a 35-year-old female, 3, para 0 -0-1-0, who had performed D and C approximately 3 days previously for missed AB. There were no compl ications. She was dismissed without any pain medication. She noticed the onset discomfort yesterday with low abdominal cramping, discomfort and some diarrhea. She now presents with severe rectal spas m, loose stools. She reports her bleeding is less. She denies any fever or chills at home. She den ies any urine symptoms. Lab work is generally normal with the exception of mild leukocytosis. CT sh ows a normal endometrial stripe with no evidence of retained tissue or extrauterine fluid or evidence of pelvic inflammatory disease, etc. Physical Examination: Exam limited. Abdomen: Soft. Discomfort is in suprapubic region in the midline extending into her back. Impression: Pelvic pain, uncertain etiology, possible colitis with the change in bowel habits. Plan: We will treat with IV Toradol, Bentyl, antispasmodic observed over the next couple of hours. If the pain significantly reduced, may dismiss her with precautions to be seen back in my office in n ext week. If discomfort persists, we will probably admit for 24-hour observation to see how the disc omfort or any other findings evolve. GURPREET/ADRIANE Voice ID: [id number] Report ID: [id number]
== END 2020-04-07 14:55 | disposition home or self-care (01) ==
LOC: ER 10:19
DX: R10.30 Lower abdominal pain, unspecified (principal)
CPT/HCPCS: 96361; 85025; 80048; 36415; 86900; 82565; 86901; 84702; 81003; 74177; 96375; 96374; 99284; Q9967; J3010; J7030; J2405